=== PATIENT | female | born 1955 | race Caucasian/White ===

== ENCOUNTER 2025-05-21 10:30 | Inpatient (IN) | payer MEDICARE, OTHER ==
[2025-05-21] MEDS ORDERED: Aspirin Chewable 81 MG TAB ONE (10:53)
[2025-05-21 11:08] LABS: #Basophils 0.04 10x3/uL (0.0-0.2); #Eosinophils 0.12 10x3/uL (0.0-0.5); #Monocytes 1.09 10x3/uL (0.0-1.1); #Neutrophils 4.18 10x3/uL (1.5-8.4); %Basophils 0.5 % (0.0-2.0); %Eosinophils 1.5 % (0.0-6.0); %Lymphocytes 33.0 % (18.0-47.0); %Monocytes 13.4 % (0.0-10.0); %Neutrophils 51.4 % (40.0-75.0); Hematocrit 47.1 % (34.9-44.5); Hemoglobin 15.1 g/dL (12.0-15.5); Mean Corpuscular Hemoglobin 29.2 pg (27.0-33.0); Mean Corpuscular Volume 91.1 fL (81.6-98.3); Platelet Count 289 10x3/uL (150-450); Red Blood Cell (RBC) Count 5.17 10x6/uL (3.90-5.03); White Blood Cell (WBC) Count 8.14 10x3/uL (3.5-10.5)
[2025-05-21] MEDS ORDERED: Nitroglycerin 2% Ointment 1 INCH/1 GM Packet ONE (11:09)
[2025-05-21] MEDS ORDERED: Ondansetron PF 4 MG/2 ML Vial ONE (11:09)
[2025-05-21 11:24] LABS: Glucose, Urine (Dipstick) Normal (Negative); Leukocyte Negative (Negative); Protein, Urine (Dipstick) Negative (Neg-Trace); Specific Gravity, Urine 1.010 (1.005-1.030)
[2025-05-21 11:33] LABS: Troponin I 3.042 ng/mL (< 0.028)
[2025-05-21] MEDS ORDERED: hydrALAZINE 20 MG/ML VIAL ONE (11:47)
[2025-05-21] MEDS ORDERED: Heparin 10,000 UNITS/ 10 ML VIAL ONE (11:47)
[2025-05-21 11:51] LABS: ALT (SGPT) 10 U/L (Less than 34); AST (SGOT) 40 U/L (11-34); Albumin 4.3 g/dL (3.1-4.5); Alkaline Phosphatase 110 U/L (40-110); Anion Gap 12 mmol/L (10-20); BUN (Urea Nitrogen) 7 mg/dL (9.8-20.1); Bilirubin, Total 0.8 mg/dL (0.3-1.2); Calc. Creatinine Clearance 0 mL/min (70-130); Calcium 10.8 mg/dL (7.8-10.44); Carbon Dioxide 28 mmol/L (23-31); Chloride 103 mmol/L (98-107); Globulin 3.1 g/dL (2.4-3.5); Glucose 110 mg/dL (80-115); Lipase 17 U/L (8-78); Magnesium 2.0 mg/dL (1.6-2.6); Potassium 4.0 mmol/L (3.5-5.1); Sodium 139 mmol/L (136-145)
[2025-05-21] MEDS ORDERED: Mag-Al 1200 mg/1200 mg/30 ML UDCUP ONE (11:58)
[2025-05-21] MEDS ORDERED: Lidocaine Viscous Sol 2% 15 ml UD Cup ONE (11:59)
[2025-05-21 12:27] LABS: Bacteria/HPF 1+ HPF (None Seen); CAUTI Indications for Culture Fever or rigors; RBC/HPF 0-3 HPF (0-3); WBC/HPF None Seen HPF (0-3)
[2025-05-21 12:28] LABS: Urine Culture Reflex No No
[2025-05-21] MEDS ORDERED: Heparin 10,000 UNITS/ 10 ML VIAL SLOW IVP SCH (12:45)
[2025-05-21 13:12] LABS: Hematocrit 44.7 % (34.9-44.5); Hemoglobin 14.8 g/dL (12.0-15.5); Platelet Count 281 10x3/uL (150-450)
[2025-05-21 16:14] VITALS: BMI 24.7
[2025-05-21] MEDS ORDERED: CATH FS SCH (17:00)
[2025-05-21] MEDS: Acetaminophen 325 MG TAB PO PRN (19:18)
[2025-05-21] MEDS: Enoxaparin 80 MG (0.8 mL) SYRINGE SC SCH (19:19)
[2025-05-22 00:35] LABS: Troponin I 3.301 ng/mL (< 0.028)
[2025-05-22 05:36] LABS: #Basophils Less than 0.03 10x3/uL (0.0-0.2); #Eosinophils 0.11 10x3/uL (0.0-0.5); #Monocytes 0.88 10x3/uL (0.0-1.1); #Neutrophils 3.22 10x3/uL (1.5-8.4); %Basophils 0.3 % (0.0-2.0); %Eosinophils 1.7 % (0.0-6.0); %Lymphocytes 35.5 % (18.0-47.0); %Monocytes 13.4 % (0.0-10.0); %Neutrophils 48.8 % (40.0-75.0); Hematocrit 39.0 % (34.9-44.5); Hemoglobin 13.1 g/dL (12.0-15.5); Mean Corpuscular Hemoglobin 30.4 pg (27.0-33.0); Mean Corpuscular Volume 90.5 fL (81.6-98.3); Platelet Count 238 10x3/uL (150-450); Red Blood Cell (RBC) Count 4.31 10x6/uL (3.90-5.03); White Blood Cell (WBC) Count 6.59 10x3/uL (3.5-10.5)
[2025-05-22 05:50] LABS: Anion Gap 12 mmol/L (10-20); BUN (Urea Nitrogen) 8 mg/dL (9.8-20.1); Calc. Creatinine Clearance 84 mL/min (70-130); Calcium 9.7 mg/dL (7.8-10.44); Carbon Dioxide 25 mmol/L (23-31); Cardiac Risk 4.6 (Less than 4.5); Chloride 107 mmol/L (98-107); Cholesterol 171 mg/dl (< 200 Desired); Glucose 98 mg/dL (80-115); HDL Cholesterol 37 mg/dL (>60 Neg Risk); LDL Cholesterol, Calculated 113 mg/dL; Potassium 3.9 mmol/L (3.5-5.1); Sodium 140 mmol/L (136-145); Triglycerides 103 mg/dL (Less than 150)
[2025-05-22 05:57] LABS: Troponin I 2.703 ng/mL (< 0.028)
[2025-05-22] MEDS: Aspirin Chewable 81 MG TAB PO SCH (06:32)
[2025-05-22] MEDS ORDERED: PHENYLEPHRINE-NS 100 MCG/ML 10 ML SYRINGE ONE (07:20)
[2025-05-22] MEDS ORDERED: Heparin 10,000 UNITS/ 10 ML VIAL ONE (07:20)
[2025-05-22] MEDS ORDERED: Lidocaine 1% (PF) 30 ML VIAL ONE (07:20)
[2025-05-22] MEDS ORDERED: Nitroglycerin 50 MG/250 ML BOT 250 ML ONE (07:21)
[2025-05-22] MEDS ORDERED: Iopamidol 300 61% 100 ML VIAL FS ONE (09:19)
[2025-05-22] MEDS ORDERED: TICAGRELOR 90 MG TABLET ONE (09:34)
[2025-05-22] MEDS: Acetaminophen 500 MG TAB PO SCH (15:07)
[2025-05-22] MEDS: Rosuvastatin 20 MG TAB PO SCH (20:26)
[2025-05-22] MEDS: TICAGRELOR 90 MG TABLET PO SCH (20:27)
[2025-05-23] MEDS: hydrALAZINE 20 MG/ML VIAL SLOW IVP PRN (02:28)
[2025-05-23] MEDS: Furosemide 20 MG (2 mL) VIAL SLOW IVP SCH (03:15)
[2025-05-23] MEDS: Nitroglycerin 0.4 MG TAB (25 Tab Bottle) SL SCH (03:17)
[2025-05-23] MEDS: Ondansetron PF 4 MG/2 ML Vial IVP PRN (03:21)
[2025-05-23 03:31] LABS: #Basophils 0.03 10x3/uL (0.0-0.2); #Eosinophils 0.12 10x3/uL (0.0-0.5); #Monocytes 0.96 10x3/uL (0.0-1.1); #Neutrophils 3.89 10x3/uL (1.5-8.4); %Basophils 0.4 % (0.0-2.0); %Eosinophils 1.7 % (0.0-6.0); %Lymphocytes 29.4 % (18.0-47.0); %Monocytes 13.5 % (0.0-10.0); %Neutrophils 54.7 % (40.0-75.0); Hematocrit 39.6 % (34.9-44.5); Hemoglobin 13.3 g/dL (12.0-15.5); Mean Corpuscular Hemoglobin 30.3 pg (27.0-33.0); Mean Corpuscular Volume 90.2 fL (81.6-98.3); Platelet Count 261 10x3/uL (150-450); Red Blood Cell (RBC) Count 4.39 10x6/uL (3.90-5.03); White Blood Cell (WBC) Count 7.11 10x3/uL (3.5-10.5)
[2025-05-23 03:43] LABS: ALT (SGPT) 10 U/L (Less than 34); AST (SGOT) 23 U/L (11-34); Albumin 3.7 g/dL (3.1-4.5); Alkaline Phosphatase 98 U/L (40-110); Anion Gap 10 mmol/L (10-20); BUN (Urea Nitrogen) 8 mg/dL (9.8-20.1); Bilirubin, Total 0.9 mg/dL (0.3-1.2); Calc. Creatinine Clearance 88 mL/min (70-130); Calcium 10.1 mg/dL (7.8-10.44); Carbon Dioxide 24 mmol/L (23-31); Chloride 108 mmol/L (98-107); Globulin 2.6 g/dL (2.4-3.5); Glucose 106 mg/dL (80-115); Potassium 4.0 mmol/L (3.5-5.1); Sodium 138 mmol/L (136-145)
[2025-05-23 03:58] LABS: Troponin I 3.013 ng/mL (< 0.028)
[2025-05-23 07:52] LABS: Troponin I 2.635 ng/mL (< 0.028)
[2025-05-23] MEDS: Losartan 25 MG TAB PO SCH (09:33)
[2025-05-23 11:16] LABS: Magnesium 1.9 mg/dL (1.6-2.6)
[2025-05-23 12:39] LABS: Hematocrit 40.5 % (34.9-44.5); Hemoglobin 13.3 g/dL (12.0-15.5); Platelet Count 270 10x3/uL (150-450)
[2025-05-23 16:39] LABS: Troponin I 2.451 ng/mL (< 0.028)
[2025-05-24 04:12] LABS: Troponin I 2.516 ng/mL (< 0.028)
[2025-05-24] MEDS ORDERED: Nitroglycerin 0.4 MG TAB (25 Tab Bottle) SL PRN (10:24)
[2025-05-24] MEDS: Pantoprazole 40 MG DR.TAB PO SCH (11:01)
[2025-05-24] MEDS: Losartan 25 MG TAB PO SCH (11:01)
[2025-05-25 05:49] LABS: #Basophils 0.04 10x3/uL (0.0-0.2); #Eosinophils 0.14 10x3/uL (0.0-0.5); #Monocytes 1.02 10x3/uL (0.0-1.1); #Neutrophils 4.25 10x3/uL (1.5-8.4); %Basophils 0.5 % (0.0-2.0); %Eosinophils 1.8 % (0.0-6.0); %Lymphocytes 28.6 % (18.0-47.0); %Monocytes 13.3 % (0.0-10.0); %Neutrophils 55.4 % (40.0-75.0); Hematocrit 38.0 % (34.9-44.5); Hemoglobin 12.6 g/dL (12.0-15.5); Mean Corpuscular Hemoglobin 30.0 pg (27.0-33.0); Mean Corpuscular Volume 90.5 fL (81.6-98.3); Platelet Count 218 10x3/uL (150-450); Red Blood Cell (RBC) Count 4.20 10x6/uL (3.90-5.03); White Blood Cell (WBC) Count 7.68 10x3/uL (3.5-10.5)
[2025-05-25 06:02] LABS: Anion Gap 11 mmol/L (10-20); BUN (Urea Nitrogen) 8 mg/dL (9.8-20.1); Calc. Creatinine Clearance 79 mL/min (70-130); Calcium 10.2 mg/dL (7.8-10.44); Carbon Dioxide 26 mmol/L (23-31); Chloride 106 mmol/L (98-107); Glucose 95 mg/dL (80-115); Potassium 3.9 mmol/L (3.5-5.1); Sodium 139 mmol/L (136-145)
[2025-05-25] MEDS: Pantoprazole 40 MG DR.TAB PO SCH (09:51)
[2025-05-25] MEDS: Losartan 50 MG TAB PO SCH (09:51)
[2025-05-25 12:53] LABS: Hematocrit 42.4 % (34.9-44.5); Hemoglobin 14.1 g/dL (12.0-15.5); Platelet Count 301 10x3/uL (150-450)
[2025-05-25 13:07] VITALS: BP 168/73; TEMP 98.5
== END 2025-05-25 15:37 | disposition home or self-care (01) | DRG 321 ==
LOC: CSHERS 10:30 → CSHERHOLD 12:25 → CSHTELE 18:54 → OBSVTOIN 05-22 12:47
PROVIDERS: ADMIT Family Medicine; ATTEND Hospitalist
PROC: 027135Z Dilation of Coronary Artery, Two Arteries with Two Drug-eluting Intraluminal Devices, Percutaneous Approach (ICD-10-PCS; principal; 2025-05-22)
PROC: 4A023N7 Measurement of Cardiac Sampling and Pressure, Left Heart, Percutaneous Approach (ICD-10-PCS; 2025-05-22)
PROC: B2151ZZ Fluoroscopy of Left Heart using Low Osmolar Contrast (ICD-10-PCS; 2025-05-22)
PROC: B2111ZZ Fluoroscopy of Multiple Coronary Arteries using Low Osmolar Contrast (ICD-10-PCS; 2025-05-22)
PROC: 3E033XZ Introduction of Vasopressor into Peripheral Vein, Percutaneous Approach (ICD-10-PCS; 2025-05-22)
DX: I21.4 Non-ST elevation (NSTEMI) myocardial infarction (principal); I63.9 Cerebral infarction, unspecified; I10 Essential (primary) hypertension; F17.210 Nicotine dependence, cigarettes, uncomplicated; I34.0 Nonrheumatic mitral (valve) insufficiency; I25.10 Atherosclerotic heart disease of native coronary artery without angina pectoris; I35.1 Nonrheumatic aortic (valve) insufficiency; G89.29 Other chronic pain; M54.9 Dorsalgia, unspecified; J44.9 Chronic obstructive pulmonary disease, unspecified; E78.5 Hyperlipidemia, unspecified; Z88.5 Allergy status to narcotic agent; Z88.0 Allergy status to penicillin; Z88.7 Allergy status to serum and vaccine; Z88.8 Allergy status to other drugs, medicaments and biological substances; Z90.710 Acquired absence of both cervix and uterus; Z90.49 Acquired absence of other specified parts of digestive tract
CPT/HCPCS: 36415; 70551; 71045; 80048; 80053; 80061; 81001; 83036; 83690; 83735; 83880; 84443; 84484; 85014; 85018; 85025; 85049; 85347; 85730; 92928; 92978; 92979; 93005; 93010; 93306; 93458; 94640; 94760; 96365; 96366; 96372; 96375; 96376; 99152; 99153; C1753; C1760; C1769; C1874; C1876; C1887; C9600; G0378; J0360; J0461; J1644; J1650; J1940; J2060; J2250; J2270; J2405; J2720; J3010; J7030; J7620; Q9967

== ENCOUNTER 2025-09-04 11:04 | Inpatient (IN) | payer MEDICARE ==
[2025-09-04] MEDS ORDERED: Aspirin Chewable 81 MG TAB ONE (12:23)
[2025-09-04 12:24] LABS: #Basophils 0.03 10x3/uL (0.0-0.2); #Eosinophils Less than 0.03 10x3/uL (0.0-0.5); #Monocytes 0.35 10x3/uL (0.0-1.1); #Neutrophils 8.12 10x3/uL (1.5-8.4); %Basophils 0.3 % (0.0-2.0); %Eosinophils 0.2 % (0.0-6.0); %Lymphocytes 10.0 % (18.0-47.0); %Monocytes 3.7 % (0.0-10.0); %Neutrophils 85.5 % (40.0-75.0); Hematocrit 38.4 % (34.9-44.5); Hemoglobin 13.0 g/dL (12.0-15.5); Mean Corpuscular Hemoglobin 30.4 pg (27.0-33.0); Mean Corpuscular Volume 89.7 fL (81.6-98.3); Platelet Count 300 10x3/uL (150-450); Red Blood Cell (RBC) Count 4.28 10x6/uL (3.90-5.03); White Blood Cell (WBC) Count 9.50 10x3/uL (3.5-10.5)
[2025-09-04 12:48] LABS: Troponin I Less than 0.010 ng/mL (< 0.028)
[2025-09-04 13:17] LABS: ALT (SGPT) 14 U/L (Less than 34); AST (SGOT) 26 U/L (11-34); Albumin 4.2 g/dL (3.1-4.5); Alkaline Phosphatase 106 U/L (40-110); Anion Gap 16 mmol/L (10-20); BUN (Urea Nitrogen) 11 mg/dL (9.8-20.1); Bilirubin, Total 0.8 mg/dL (0.3-1.2); Calc. Creatinine Clearance 0 mL/min (70-130); Calcium 10.8 mg/dL (7.8-10.44); Carbon Dioxide 20 mmol/L (23-31); Chloride 105 mmol/L (98-107); Globulin 3.0 g/dL (2.4-3.5); Glucose 132 mg/dL (80-115); Lipase 17 U/L (8-78); Magnesium 2.0 mg/dL (1.6-2.6); Potassium 4.7 mmol/L (3.5-5.1); Sodium 136 mmol/L (136-145)
[2025-09-04] MEDS ORDERED: Nitroglycerin 0.4 MG TAB (25 Tab Bottle) SL PRN (16:26)
[2025-09-04] MEDS ORDERED: Acetaminophen 325 MG TAB PO PRN (16:27)
[2025-09-04] MEDS ORDERED: Senokot S 8.6-50 MG TAB PO PRN (16:27)
[2025-09-04] MEDS ORDERED: Melatonin 3 MG TAB PO PRN (16:27)
[2025-09-04] MEDS ORDERED: Electrolyte Replacement Protocol 1 EACH FS SCH (16:30)
[2025-09-04 17:11] VITALS: BMI 25.9
[2025-09-04] MEDS ORDERED: Magnesium 2 GM/50 ML(in water) 2 GM in Premix 1 BAG IVPB PRN (17:15)
[2025-09-04] MEDS ORDERED: PHOS-NAK 1 PKT PACK PO PRN (17:15)
[2025-09-04] MEDS ORDERED: Potassium Chloride 20 MEQ in Premix 1 BAG IVPB PRN (17:15)
[2025-09-04] MEDS: Promethazine HCl 12.5 MG, Admixture Fee 1 EACH in Sodium Chloride 0.9% 50 ML IVPB SCH (17:37)
[2025-09-04 17:44] LABS: Troponin I Less than 0.010 ng/mL (< 0.028)
[2025-09-04] MEDS: Pantoprazole 40 MG VIAL IVP SCH (19:01)
[2025-09-04 19:59] LABS: Troponin I Less than 0.010 ng/mL (< 0.028)
[2025-09-04] MEDS: Rosuvastatin 20 MG TAB PO SCH (21:33)
[2025-09-05] MEDS: TICAGRELOR 90 MG TABLET PO SCH ×2 (00:14→09:34)
[2025-09-05] MEDS: Losartan 50 MG TAB PO SCH ×2 (00:18→19:51)
[2025-09-05 03:46] LABS: #Basophils Less than 0.03 10x3/uL (0.0-0.2); #Eosinophils 0.12 10x3/uL (0.0-0.5); #Monocytes 0.86 10x3/uL (0.0-1.1); #Neutrophils 3.18 10x3/uL (1.5-8.4); %Basophils 0.3 % (0.0-2.0); %Eosinophils 1.9 % (0.0-6.0); %Lymphocytes 34.7 % (18.0-47.0); %Monocytes 13.4 % (0.0-10.0); %Neutrophils 49.4 % (40.0-75.0); Hematocrit 35.3 % (34.9-44.5); Hemoglobin 11.7 g/dL (12.0-15.5); Mean Corpuscular Hemoglobin 29.8 pg (27.0-33.0); Mean Corpuscular Volume 90.1 fL (81.6-98.3); Platelet Count 249 10x3/uL (150-450); Red Blood Cell (RBC) Count 3.92 10x6/uL (3.90-5.03); White Blood Cell (WBC) Count 6.43 10x3/uL (3.5-10.5)
[2025-09-05 04:03] LABS: ALT (SGPT) 10 U/L (Less than 34); AST (SGOT) 15 U/L (11-34); Albumin 3.5 g/dL (3.1-4.5); Alkaline Phosphatase 88 U/L (40-110); Anion Gap 10 mmol/L (10-20); BUN (Urea Nitrogen) 14 mg/dL (9.8-20.1); Bilirubin, Total 0.6 mg/dL (0.3-1.2); Calc. Creatinine Clearance 79 mL/min (70-130); Calcium 10.2 mg/dL (7.8-10.44); Carbon Dioxide 26 mmol/L (23-31); Chloride 107 mmol/L (98-107); Globulin 2.5 g/dL (2.4-3.5); Glucose 108 mg/dL (80-115); Potassium 4.0 mmol/L (3.5-5.1); Sodium 139 mmol/L (136-145)
[2025-09-05] MEDS ORDERED: Losartan 50 MG TAB PO SCH (09:00)
[2025-09-05] MEDS: Pantoprazole 40 MG DR.TAB PO SCH (09:34)
[2025-09-05] MEDS: Aspirin Chewable 81 MG TAB PO SCH (09:34)
[2025-09-06 03:43] LABS: #Basophils Less than 0.03 10x3/uL (0.0-0.2); #Eosinophils Less than 0.03 10x3/uL (0.0-0.5); #Monocytes 0.70 10x3/uL (0.0-1.1); #Neutrophils 7.86 10x3/uL (1.5-8.4); %Basophils 0.1 % (0.0-2.0); %Eosinophils 0.0 % (0.0-6.0); %Lymphocytes 10.9 % (18.0-47.0); %Monocytes 7.2 % (0.0-10.0); %Neutrophils 81.4 % (40.0-75.0); Hematocrit 34.7 % (34.9-44.5); Hemoglobin 11.6 g/dL (12.0-15.5); Mean Corpuscular Hemoglobin 29.8 pg (27.0-33.0); Mean Corpuscular Volume 89.2 fL (81.6-98.3); Platelet Count 287 10x3/uL (150-450); Red Blood Cell (RBC) Count 3.89 10x6/uL (3.90-5.03); White Blood Cell (WBC) Count 9.66 10x3/uL (3.5-10.5)
[2025-09-06 03:58] LABS: ALT (SGPT) 9 U/L (Less than 34); AST (SGOT) 14 U/L (11-34); Albumin 3.5 g/dL (3.1-4.5); Alkaline Phosphatase 127 U/L (40-110); Anion Gap 11 mmol/L (10-20); BUN (Urea Nitrogen) 11 mg/dL (9.8-20.1); Bilirubin, Total 0.4 mg/dL (0.3-1.2); Calc. Creatinine Clearance 90 mL/min (70-130); Calcium 10.6 mg/dL (7.8-10.44); Carbon Dioxide 23 mmol/L (23-31); Chloride 108 mmol/L (98-107); Globulin 2.6 g/dL (2.4-3.5); Glucose 158 mg/dL (80-115); Potassium 4.0 mmol/L (3.5-5.1); Sodium 138 mmol/L (136-145)
[2025-09-06 04:29] LABS: Glucose, Urine (Dipstick) Normal (Negative); Leukocyte Negative (Negative); Protein, Urine (Dipstick) 15 mg/dl (Neg-Trace); Specific Gravity, Urine 1.015 (1.005-1.030)
[2025-09-06 05:07] LABS: Bacteria/HPF 1+ HPF (None Seen); CAUTI Indications for Culture Dysuria,urgency,freq; RBC/HPF None Seen HPF (0-3); WBC/HPF 0-3 HPF (0-3)
[2025-09-06 05:08] LABS: Urine Culture Reflex No No
[2025-09-06] MEDS: Losartan 50 MG TAB PO SCH (09:19)
[2025-09-06 10:26] VITALS: BP 134/71; TEMP 97.8
== END 2025-09-06 12:15 | disposition home or self-care (01) | DRG 392 ==
LOC: CSHERS 11:04 → CSHTELE 14:52 → OBSVTOIN 09-05 10:31
PROVIDERS: ADMIT Internal Medicine; ATTEND Student in an Organized Health Care Education/Training Program
DX: K29.70 Gastritis, unspecified, without bleeding (principal); I10 Essential (primary) hypertension; E78.5 Hyperlipidemia, unspecified; I25.10 Atherosclerotic heart disease of native coronary artery without angina pectoris; J44.9 Chronic obstructive pulmonary disease, unspecified; I73.9 Peripheral vascular disease, unspecified; G89.29 Other chronic pain; M54.50 Low back pain, unspecified; I25.2 Old myocardial infarction; Z88.5 Allergy status to narcotic agent; Z88.0 Allergy status to penicillin; Z88.8 Allergy status to other drugs, medicaments and biological substances; Z86.73 Personal history of transient ischemic attack (TIA), and cerebral infarction without residual deficits; Z90.49 Acquired absence of other specified parts of digestive tract; Z98.890 Other specified postprocedural states; Z90.710 Acquired absence of both cervix and uterus; Z87.891 Personal history of nicotine dependence; Z95.5 Presence of coronary angioplasty implant and graft; Z98.51 Tubal ligation status; Z79.82 Long term (current) use of aspirin; Z79.899 Other long term (current) drug therapy; Z88.7 Allergy status to serum and vaccine; I34.0 Nonrheumatic mitral (valve) insufficiency; I70.1 Atherosclerosis of renal artery
CPT/HCPCS: 36415; 71045; 80053; 81001; 83605; 83690; 83735; 83880; 84484; 85025; 87428; 93005; 94760; 96374; 96375; G0378; J2470; J2550; J7120